=== PATIENT | female | born 1975 | race Caucasian/White ===

== ENCOUNTER 2018-11-18 15:18 | Emergency (ER) | payer MEDICARE ==
[2018-11-18] MEDS ORDERED: Sodium Chloride 0.9% 1000 ML 1,000 ML IV STA (15:29)
--- NOTE | 2018-11-18 15:56 | ERPHSYRPT ---
- History of Present Illness Time Seen by Provider: 11/18/18 15:50 Source: patient Exam Limitations: no limitations Patient Subjective Stated Complaint: headache, CP since .. has had tingling in her face with the headache. has run out of her meds yesterday. anxious. pain with breathing and productive cough. pain in chest everytime she lights up a cigarette. staets she accidently drank her friends drinl thursday and it had meth in it. Triage Nursing Assessment: alert and axious with c/o headache,CP. very anxious. has run out of her meds yesterrday.. staets has had tingling in her face with the headache. intermittent. Neuro intact. pain in left side of chest that increases with deep breathing. productive cough.. pain increases wihen she lights up a cigarette. ran out of her meds last night./ Physician History: 43-year-old white female with history of atherosclerotic coronary artery disease emphysema high blood pressure anxiety Arrives with complaints of paresthesia left side of her face on since yesterday headache since Thursday, she states that she ran out of her Klonopin and Zoloft She states that prior to onset of symptoms she accidentally drank her friends methamphetamines on Thursday 3 days ago She states whenever she lites a cigarette she has pain in her chest and paresthesia on the left side of her face. She is not having trouble moving she is not having any troubles talking. Past medical history includes atherosclerotic coronary artery disease, emphysema , high blood pressure, anxiety Past surgical history includes cholecystectomy appendectomy hysterectomy tubal ligation 3 Social history includes positive tobacco use, positive occasional alcohol use Patient states she "accidentally" took a friend's Meth the other day Timing/Duration: day(s) (3 days) Severity: moderate Modifying Factors: Improves With: nothing Associated Symptoms: shortness of breath, chest pain (sharp pain whenever she lites a ciggarette), headaches, No nausea, No vomiting, No abdominal pain, No heartburn, No diaphoresis, No cough, No chills, No loss of appetite, No malaise , No rash, No syncope, No seizure, No weakness Allergies/Adverse Reactions: No Known Drug Allergies Allergy (Unverified 11/18/18 15:56) Immunizations Up to Date: (unknown) - Review of Systems Constitutional: No Fever, No Chills Eyes: No Symptoms Ears, Nose, & Throat: No Symptoms, No Ear Pain, No Ear Discharge, No Hearing Changes, No Tinnitus, No Nose Pain, No Nose Congestion, No Nose Discharge, No Sinus Drainage, No Epistaxis, No Mouth Pain, No Mouth Swelling, No Loose Teeth, No Throat Pain, No Throat Swelling, No Hoarse, No Painful Swallowing, No Snoring , No Stridor Respiratory: Dyspnea Cardiac: Chest Pain (Sharp chest pain left side of chest when she lites a cigarette) Abdominal/Gastrointestinal: No Abdominal Pain, No Nausea, No Vomiting, No Diarrhea Genitourinary Symptoms: No Dysuria Musculoskeletal: No Back Pain, No Neck Pain Skin: No Rash Neurological: Headache, Parasthesia (Paresthesia left side of face when she lites a cigarette), No Dizziness, No Focal Weakness, No Gait Changes, No Irritability, No Lethargy, No Paralysis Psychological: Anxiety Endocrine: No Symptoms All Other Systems: Reviewed and Negative - Past Medical History Pertinent Past Medical History: Yes Cardiac History: Hypertension, Other (patient states she has atherosclerotic coronary artery disease) Endocrine Medical History: No Pertinent History Musculoskeletal History: No Pertinent History GI Medical History: No Pertinent History History: No Pertinent History Psycho-Social History: Anxiety - Past Surgical History Past Surgical History: Yes Gastrointestinal: Appendectomy, Cholecystectomy Female Surgical History: Hysterectomy, Tubal Ligation - Social History Smoking Status: Current every day smoker Exposure to second hand smoke: Yes Drug Use: methamphetamines Patient Lives Alone: No - Female History Hx Now: No - Nursing Vital Signs Nursing Vital Signs: Initial Vital Signs Temperature 97.8 F 11/18/18 15:29 Pulse Rate 80 11/18/18 15:29 Respiratory Rate 20 11/18/18 15:29 Blood Pressure 139/75 11/18/18 15:29 O2 Sat by Pulse Oximetry 100 11/18/18 15:29 Pain Scale Pain Intensity 2 - Physical Exam General Appearance: mild distress, alert, other (well-developed obese white female anxious and somewhat tremulous alert oriented 3 cooperative to exam) Eye Exam: PERRL/EOMI, eyes nml inspection, other (fundi are unremarkable) Ears, Nose, Throat Exam: normal ENT inspection, TMs normal, pharynx normal, moist mucous membranes Neck Exam: normal inspection, non-tender, supple, full range of motion Respiratory Exam: normal breath sounds, lungs clear, No respiratory distress Cardiovascular Exam: regular rate/rhythm, normal heart sounds, normal peripheral pulses, capillary refill <2 sec Gastrointestinal/Abdomen Exam: soft, normal bowel sounds, No tenderness, No mass Back Exam: normal inspection, normal range of motion, No CVA tenderness, No vertebral tenderness Extremity Exam: normal range of motion, pelvis stable, other (clubbing of fingernails), No normal inspection Neurologic Exam: alert, oriented x 3, 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 Speech is normal. Full range of motion all extremities. Sensation intact to all extremities,patient with fine tremor ) Skin Exam: normal color, warm, dry, No rash SpO2 Interpretation: normal (100%) SpO2: 100 - Course Nursing assessment & vital signs reviewed: Yes EKG Interpreted by Me: RATE (68 bpm), NORMAL AXIS, Other (EKG: Sinus arrhythmia , 68 bpm, normal axis, no acute ST or T wave changes, normal EKG) - Radiology Exams Chest X-ray Interpretation: Interpreted by me (no acute disease process noted) Ordered Tests: Active Orders 24 hr Category Date Time Status Aerodynamicist STAT Care 11/18/18 15:29 Active EKG-ER Only STAT Care 11/18/18 15:29 Active IV Insertion STAT Care 11/18/18 15:29 Active CHEST 1 VIEW (PORTABLE) Stat Exams 11/18/18 17:06 Taken ACETAMINOPHEN Stat Lab 11/18/18 15:40 Completed CBC W DIFF Stat Lab 11/18/18 15:40 Completed CMP Stat Lab 11/18/18 15:40 Completed D-DIMER QUANTITATION Stat Lab 11/18/18 15:40 Completed ETHYL ALCOHOL Stat Lab 11/18/18 15:40 Completed HCG QUALITATIVE,SERUM Stat Lab 11/18/18 15:40 Completed SALICYLATE Stat Lab 11/18/18 15:40 Completed TROPONIN Q3H Lab 11/18/18 15:40 Completed UA W/RFX UR CULTURE Stat Lab 11/18/18 16:08 Completed Urine Triage Profile Stat Lab 11/18/18 16:08 Completed Medication Summary Discontinued Medications Generic Name Dose Route Start Last Admin Trade Name Freq PRN Reason Stop Dose Admin Aspirin 162 mg 11/18/18 17:30 11/18/18 17:37 Baby Aspirin 81 Mg Chew PO 11/18/18 17:31 162 mg STAT ONE Administration Aspirin Confirm 11/18/18 17:32 Baby Aspirin 81 Mg Chew Administered 11/18/18 17:33 Dose 162 mg .ROUTE .STK-MED ONE Sodium Chloride 1,000 mls @ 999 mls/hr 11/18/18 15:29 11/18/18 16:22 Sodium Chloride 0.9% 1000 Ml IV 11/18/18 16:29 Not Given .Q1H1M STA Sodium Chloride Confirm 11/18/18 15:59 Sodium Chloride 0.9% 1000 Ml Administered 11/18/18 16:00 Dose 1,000 mls @ ud .ROUTE .STK-MED ONE Lorazepam 1 mg 11/18/18 16:02 11/18/18 16:31 Ativan 2 Mg/1 Ml Vial IV 11/18/18 16:03 Not Given STAT ONE Lorazepam 1 mg 11/18/18 16:11 11/18/18 16:18 Ativan 1 Mg PO 11/18/18 16:12 1 mg STAT ONE Administration Lorazepam Confirm 11/18/18 16:16 Ativan 1 Mg Administered 11/18/18 16:17 Dose 1 mg .ROUTE .STK-MED ONE Lorazepam 2 mg 11/18/18 17:30 11/18/18 17:36 Ativan 1 Mg PO 11/18/18 17:31 2 mg STAT ONE Administration Lorazepam Confirm 11/18/18 17:32 Ativan 1 Mg Administered 11/18/18 17:33 Dose 2 mg .ROUTE .STK-MED ONE Lab/Rad Data: Laboratory Result Diagrams 11/18/18 15:40 11/18/18 15:40 Laboratory Results 11/18/18 11/18/18 11/18/18 Range/Units 16:08 16:08 15:40 WBC (4.0-10.5) K/mm3 RBC (4.1-5.4) M/mm3 Hgb (12.0-16.0) gm/dl Hct (35-47) % MCV (78-100) fl MCH (26-32) pg MCHC (32-36) g/dl RDW (11.5-14.0) % Plt Count (150-450) K/mm3 MPV (6-9.5) fl Gran % (36.0-66.0) % Eos # (Auto) (0-0.5) Absolute Lymphs (auto) (1.0-4.6) Absolute Monos (auto) (0.0-1.3) Lymphocytes % (24.0-44.0) % Monocytes % (0.0-12.0) % Eosinophils % (0.00-5.0) % Basophils % (0.0-0.4) % Absolute Granulocytes (1.4-6.9) Basophils # (0-0.4) D-Dimer (215-500) ng/mL Sodium (137-145) mmol/L Potassium (3.5-5.1) mmol/L Chloride (98-107) mmol/L Carbon Dioxide (22-30) mmol/L Anion Gap (5-15) MEQ/L BUN (7-17) mg/dL Creatinine (0.52-1.04) mg/dL Estimated GFR ML/MIN Glucose (74-106) mg/dL Calcium (8.4-10.2) mg/dL Total Bilirubin (0.2-1.3) mg/dL AST (14-36) U/L ALT (0-35) U/L Alkaline Phosphatase (38-126) U/L Troponin I (0.000-0.034) ng/mL Serum Total Protein (6.3-8.2) g/dL Albumin (3.5-5.0) g/dL Serum , Qual NEGATIVE (Negative) Urine Color STRAW (YELLOW) Urine Appearance CLEAR (CLEAR) Urine pH 8.0 (5-6) Ur Specific Cato 1.004 (1.005-1.025) Urine Protein NEGATIVE (Negative) Urine Ketones NEGATIVE (NEGATIVE) Urine Blood SMALL (0-5) Ace/ul Urine Nitrite NEGATIVE (NEGATIVE) Urine Bilirubin NEGATIVE (NEGATIVE) Urine Urobilinogen NEGATIVE (0-1) mg/dL Ur Leukocyte Esterase NEGATIVE (NEGATIVE) Urine WBC (Auto) 0-2 (0-5) /HPF Urine RBC (Auto) NONE (0-2) /HPF U Epithel Cells (Auto) RARE (FEW) /HPF Urine Bacteria (Auto) FEW (NEGATIVE) /HPF Urine Culture Reflexed NO (NO) Urine Glucose NEGATIVE (NEGATIVE) mg/dL Salicylates (2-20) mg/dL Urine Opiates Level NEGATIVE (NEGATIVE) Ur Methadone NEGATIVE (NEGATIVE) Acetaminophen (10-30) ug/ml Urine Barbiturates NEGATIVE (NEGATIVE) Ur Phencyclidine (PCP) NEGATIVE (NEGATIVE) Urine Amphetamine POSITIVE (NEGATIVE) U Benzodiazepine Level NEGATIVE (NEGATIVE) Urine Cocaine NEGATIVE (NEGATIVE) Urine Marijuana (THC) NEGATIVE (NEGATIVE) Ethyl Alcohol (0-10) mg/dL 11/18/18 11/18/18 11/18/18 Range/Units 15:40 15:40 15:40 WBC (4.0-10.5) K/mm3 RBC (4.1-5.4) M/mm3 Hgb (12.0-16.0) gm/dl Hct (35-47) % MCV (78-100) fl MCH (26-32) pg MCHC (32-36) g/dl RDW (11.5-14.0) % Plt Count (150-450) K/mm3 MPV (6-9.5) fl Gran % (36.0-66.0) % Eos # (Auto) (0-0.5) Absolute Lymphs (auto) (1.0-4.6) Absolute Monos (auto) (0.0-1.3) Lymphocytes % (24.0-44.0) % Monocytes % (0.0-12.0) % Eosinophils % (0.00-5.0) % Basophils % (0.0-0.4) % Absolute Granulocytes (1.4-6.9) Basophils # (0-0.4) D-Dimer 367 (215-500) ng/mL Sodium 139 (137-145) mmol/L Potassium 4.0 (3.5-5.1) mmol/L Chloride 107 (98-107) mmol/L Carbon Dioxide 24 (22-30) mmol/L Anion Gap 11.3 (5-15) MEQ/L BUN 10 (7-17) mg/dL Creatinine 0.68 (0.52-1.04) mg/dL Estimated GFR > 60.0 ML/MIN Glucose 88 (74-106) mg/dL Calcium 9.0 (8.4-10.2) mg/dL Total Bilirubin 0.50 (0.2-1.3) mg/dL AST 52 H (14-36) U/L ALT 39 H (0-35) U/L Alkaline Phosphatase 82 (38-126) U/L Troponin I < 0.012 (0.000-0.034) ng/mL Serum Total Protein 7.0 (6.3-8.2) g/dL Albumin 4.0 (3.5-5.0) g/dL Serum , Qual (Negative) Urine Color (YELLOW) Urine Appearance (CLEAR) Urine pH (5-6) Ur Specific Cato (1.005-1.025) Urine Protein (Negative) Urine Ketones (NEGATIVE) Urine Blood (0-5) Ace/ul Urine Nitrite (NEGATIVE) Urine Bilirubin (NEGATIVE) Urine Urobilinogen (0-1) mg/dL Ur Leukocyte Esterase (NEGATIVE) Urine WBC (Auto) (0-5) /HPF Urine RBC (Auto) (0-2) /HPF U Epithel Cells (Auto) (FEW) /HPF Urine Bacteria (Auto) (NEGATIVE) /HPF Urine Culture Reflexed (NO) Urine Glucose (NEGATIVE) mg/dL Salicylates < 1.0 L (2-20) mg/dL Urine Opiates Level (NEGATIVE) Ur Methadone (NEGATIVE) Acetaminophen < 10 L (10-30) ug/ml Urine Barbiturates (NEGATIVE) Ur Phencyclidine (PCP) (NEGATIVE) Urine Amphetamine (NEGATIVE) U Benzodiazepine Level (NEGATIVE) Urine Cocaine (NEGATIVE) Urine Marijuana (THC) (NEGATIVE) Ethyl Alcohol < 10 (0-10) mg/dL 11/18/18 Range/Units 15:40 WBC 12.5 H (4.0-10.5) K/mm3 RBC 4.01 L (4.1-5.4) M/mm3 Hgb 12.7 (12.0-16.0) gm/dl Hct 37.8 (35-47) % MCV 94.3 (78-100) fl MCH 31.6 (26-32) pg MCHC 33.6 (32-36) g/dl RDW 12.1 (11.5-14.0) % Plt Count 312 (150-450) K/mm3 MPV 10.5 H (6-9.5) fl Gran % 62.5 (36.0-66.0) % Eos # (Auto) 0.28 (0-0.5) Absolute Lymphs (auto) 3.53 (1.0-4.6) Absolute Monos (auto) 0.86 (0.0-1.3) Lymphocytes % 28.2 (24.0-44.0) % Monocytes % 6.9 (0.0-12.0) % Eosinophils % 2.2 (0.00-5.0) % Basophils % 0.2 (0.0-0.4) % Absolute Granulocytes 7.80 H (1.4-6.9) Basophils # 0.03 (0-0.4) D-Dimer (215-500) ng/mL Sodium (137-145) mmol/L Potassium (3.5-5.1) mmol/L Chloride (98-107) mmol/L Carbon Dioxide (22-30) mmol/L Anion Gap (5-15) MEQ/L BUN (7-17) mg/dL Creatinine (0.52-1.04) mg/dL Estimated GFR ML/MIN Glucose (74-106) mg/dL Calcium (8.4-10.2) mg/dL Total Bilirubin (0.2-1.3) mg/dL AST (14-36) U/L ALT (0-35) U/L Alkaline Phosphatase (38-126) U/L Troponin I (0.000-0.034) ng/mL Serum Total Protein (6.3-8.2) g/dL Albumin (3.5-5.0) g/dL Serum , Qual (Negative) Urine Color (YELLOW) Urine Appearance (CLEAR) Urine pH (5-6) Ur Specific Cato (1.005-1.025) Urine Protein (Negative) Urine Ketones (NEGATIVE) Urine Blood (0-5) Ace/ul Urine Nitrite (NEGATIVE) Urine Bilirubin (NEGATIVE) Urine Urobilinogen (0-1) mg/dL Ur Leukocyte Esterase (NEGATIVE) Urine WBC (Auto) (0-5) /HPF Urine RBC (Auto) (0-2) /HPF U Epithel Cells (Auto) (FEW) /HPF Urine Bacteria (Auto) (NEGATIVE) /HPF Urine Culture Reflexed (NO) Urine Glucose (NEGATIVE) mg/dL Salicylates (2-20) mg/dL Urine Opiates Level (NEGATIVE) Ur Methadone (NEGATIVE) Acetaminophen (10-30) ug/ml Urine Barbiturates (NEGATIVE) Ur Phencyclidine (PCP) (NEGATIVE) Urine Amphetamine (NEGATIVE) U Benzodiazepine Level (NEGATIVE) Urine Cocaine (NEGATIVE) Urine Marijuana (THC) (NEGATIVE) Ethyl Alcohol (0-10) mg/dL - Progress Progress: improved Progress Note: 11/18/18 17:32 This is a 43-year-old white female with history of atherosclerotic coronary artery disease, high blood pressure, emphysema, anxiety, she arrives stating that she accidentally took someone's methamphetamine 3 days ago She states that she's been having some paresthesias to the left side of her face some pain in her anterior chest whenever she tries to smoke a cigarette. She has not had any problems speaking. She states that the paresthesia essentially stopped yesterday. Patient arrives she appears to be somewhat anxious she has a fine tremor on examination. Patient has normal vital signs. Patient was an EKG normal sinus rhythm 68 bpm normal axis no acute ST or T wave changes are noted Patient with slight elevated white count of 12.5 hemoglobin is 12.7 hematocrit is 37.8 patient's chemistry essentially normal with the exception of a AST of 52 and a L3 of 39 patient's Tylenol level is less than 10 salicylate level less than 1 alcohol level less than 1 d-dimer is within normal limits Patient's urine drug screen is positive for amphetamines. chest x-ray is pending Troponin is normal I've asked the patient if she wishes to stay for repeat troponin she does not want to. Will review chest x-ray results plan on discharging patient. Patient was given Ativan 1 mg by mouth. It is noticed that she's been on clonazepam in the past she last filled 30 of these on October 06, 2018. Patient is somewhat better after receiving Ativan 1 mg orally she is stable. Will plan to give patient 2 Ativan tablets 1 to be taken every 8 hours as she needs for anxiety. She is to contact her provider for further medications. Patient has been warned not to not to take anymore amphetamines or illicit substances. She has also been advised to quit smoking. - Departure Time of Disposition: 17:00 Departure Disposition: Home Clinical Impression: Non-cardiac chest pain, Facial paresthesia, Methamphetamine use Condition: Fair Critical Care Time: No Referrals: MADHURI KAUFFMAN NP [Primary Care Provider] - Additional Instructions: Return home. Rest. Plenty of fluids. Do not take any more methamphetamines. Stop smoking. Follow-up with your family doctor or [facility] for refill of your clonazepam. Return for acute distress or for severe symptoms.
[2018-11-18] MEDS ORDERED: Sodium Chloride 0.9% 1000 ML 0 ML ONE (15:59)
[2018-11-18] MEDS ORDERED: Ativan 2 MG/1 ML VIAL IV ONE (16:02)
[2018-11-18] MEDS ORDERED: Ativan 1 MG PO ONE ×2 (16:11→17:30)
[2018-11-18] MEDS ORDERED: Ativan 1 MG ONE ×2 (16:16→17:32)
[2018-11-18 16:20] LABS: Appearance CLEAR (CLEAR); Bacteria FEW /HPF (NEGATIVE); Bilirubin NEGATIVE (NEGATIVE); Blood SMALL Ery/ul (0-5); Epithelial Cells RARE /HPF (FEW); Glucose NEGATIVE (NEGATIVE); Ketones NEGATIVE (NEGATIVE); Leukocyte Esterase NEGATIVE (NEGATIVE); Nitrite NEGATIVE (NEGATIVE); Protein,Urine Dip NEGATIVE (Negative); Specific Gravity 1.004 (1.005-1.025); Urobilinogen NEGATIVE mg/dL (0-1); WBC 0-2 /HPF (0-5)
[2018-11-18 16:28] LABS: Amphetamine,Urine POSITIVE (NEGATIVE); Barbiturate,Urine NEGATIVE (NEGATIVE); Benzodiazepine,Urine NEGATIVE (NEGATIVE); Cocaine,Urine NEGATIVE (NEGATIVE); Methadone,Urine NEGATIVE (NEGATIVE); Opiate,Urine NEGATIVE (NEGATIVE); PCP,Urine NEGATIVE (NEGATIVE); THC,Urine NEGATIVE (NEGATIVE)
[2018-11-18 17:07] LABS: ACETAMINOPHEN < 10 ug/ml (10-30); ALKALINE PHOSPHATASE 82 U/L (38-126); ANION GAP 11.3 MEQ/L (5-15); BLOOD UREA NITROGEN 10 mg/dL (7-17); CHLORIDE 107 mmol/L (98-107); Carbon Dioxide 24 mmol/L (22-30); Creatinine 1 0.68 mg/dL (0.52-1.04); ETHYL ALCOHOL < 10 mg/dL (0-10); Glucose 88 mg/dL (74-106); SALICYLATE < 1.0 mg/dL (2-20); SGOT/AST 52 U/L (14-36); SGPT/ALT 39 U/L (0-35); SODIUM 139 mmol/L (137-145)
[2018-11-18 17:08] LABS: BASOPHIL % 0.2 % (0.0-0.4); Basophil (Absolute #) 0.03 (0-0.4); Eosinophil % 2.2 % (0.00-5.0); Eosinophil (Absolute #) 0.28 (0-0.5); Granulocytes % 62.5 % (36.0-66.0); Hematocrit 37.8 % (35-47); Hemoglobin 12.7 gm/dl (12.0-16.0); Lymphocyte (Absolute #) 3.53 (1.0-4.6); Lymphocytes % 28.2 % (24.0-44.0); Mean Cell Volume 94.3 fl (78-100); Mean Corpuscular Hgb Concent. 33.6 g/dl (32-36); Mean Platelet Volume 10.5 fl (6-9.5); Monocyte (Absolute #) 0.86 (0.0-1.3); Monocytes % 6.9 % (0.0-12.0); Platelet Count 312 K/mm3 (150-450); Red Blood Count 4.01 M/mm3 (4.1-5.4); Red Cell Distribution Width 12.1 % (11.5-14.0); White Blood Count 12.5 K/mm3 (4.0-10.5)
[2018-11-18 17:09] LABS: Mean Corpuscular Hemoglobin 31.6 pg (26-32)
[2018-11-18] MEDS ORDERED: BABY ASPIRIN 81 MG CHEW PO ONE (17:30)
[2018-11-18] MEDS ORDERED: BABY ASPIRIN 81 MG CHEW ONE (17:32)
[2018-11-18 17:39] VITALS: O2SAT 100
[2018-11-18 17:40] VITALS: BP 128/76; PULSE 72
--- NOTE | 2018-11-19 09:04 | XRAY ---
Indication: Chest pain and short of breath. Comparison: November 05, 2008. Portable apical lordotic chest less inflated and remains clear. Heart and mediastinal structures within normal limits. Bony thorax intact. Impression: Nonacute chest.
== END 2018-11-18 17:57 | disposition home or self-care (01) ==
LOC: ED 15:18
DX: R07.89 Other chest pain (principal); R20.2 Paresthesia of skin; F15.99 Other stimulant use, unspecified with unspecified stimulant-induced disorder; Z79.891 Long term (current) use of opiate analgesic
CPT/HCPCS: 36415; 71045; 80053; 80307; 81001; 81025; 84484; 85025; 85379; 93005; 93041; 99284; G0480; G0481; A9270-GY